=== PATIENT | female | born 1955 | race Caucasian/White ===

== ENCOUNTER 2020-07-18 11:00 | Inpatient (IN) | payer OTHER ==
[2020-07-18 11:13] VITALS: BMI 32.8
[2020-07-18] MEDS ORDERED: SODIUM CHLORIDE 2,517 ML IV ONE (11:25)
[2020-07-18] MEDS ORDERED: metroNIDAZOLE 250 MG TABLET PO ONE (11:39)
[2020-07-18] MEDS ORDERED: VANCOMYCIN 1 GM in D5W (PRE-DOCKED) 1,000 MG/250 ML IVPB ONE (11:39)
[2020-07-18] MEDS ORDERED: CEFTRIAXONE 1,000 MG in DEXTROSE 5%-WATER - 50 ML IVPB ONE (11:39)
[2020-07-18] MEDS ORDERED: ACETAMINOPHEN 1000 MG/100 ML VIAL (NON FORMULARY) IVPB ONE (11:44)
[2020-07-18] MEDS ORDERED: ACETAMINOPHEN INJECTION 100 ML IVPB ONE (12:07)
[2020-07-18] MEDS ORDERED: cefTRIAXone SODIUM 1 GM VIAL ONE (12:07)
[2020-07-18] MEDS ORDERED: metroNIDAZOLE 250 MG TABLET ONE (12:07)
[2020-07-18] MEDS ORDERED: VANCOMYCIN 1,000 MG VIAL (RESTRICTED TO ID ONLY) ONE (12:08)
[2020-07-18 12:26] LABS: ACTIVATED PTT 21.8 SECONDS (25.2-36.5)
[2020-07-18 12:30] LABS: INR 1.27 (0.82-1.09)
[2020-07-18 12:32] LABS: ALBUMIN 4.1 g/dl (3.4-5.0); BILIRUBIN,TOTAL 1.6 mg/dl (0.2-1); CALCIUM 9.4 mg/dl (8.5-10); CREATININE 0.8 mg/dl (0.55-1.3); TOT PROT 7.7 g/dl (6.4-8.2)
[2020-07-18 13:22] LABS: BASO % 0.4 % (0-2.0); EOS % 0.1 % (0-4.5); HEMATOCRIT 41.1 % (32.4-45.2); HEMOGLOBIN 13.7 GM/dL (10.7-15.3); LYMPH % 10.5 % (8-40); MCHC 33.4 g/dl (32.0-36.0); MEAN CELL VOLUME 80.9 fl (80-96); MEAN PLT VOLUME 7.8 fl (7.5-11.1); MONO % 5.3 % (3.8-10.2); NEUT % 83.7 % (42.8-82.8); PLATELET COUNT 339 K/MM3 (134-434); RBC 5.07 M/mm3 (3.60-5.2); WHITE BLOOD COUNT 17.8 K/mm3 (4.0-10.0)
[2020-07-18] MEDS ORDERED: SODIUM CHLORIDE 0.9% 500 ML INFUS.BAG IV ONE (14:26)
[2020-07-18 14:39] LABS: EPITHELIAL CELLS FEW /hpf
[2020-07-18] MEDS ORDERED: MEROPENEM 1 GM in DEXTROSE 5%-WATER 100 ML IVPB SCH (15:00)
[2020-07-18] MEDS ORDERED: MEROPENEM 1 GM in SODIUM CHLORIDE 100 ML IVPB SCH (15:00)
[2020-07-18] MEDS ORDERED: SODIUM CHLORIDE 1,000 ML IV SCH (15:15)
[2020-07-18] MEDS: MEROPENEM 1 GM in DEXTROSE 5%-WATER 100 ML IVPB SCH (17:45)
[2020-07-18 19:39] LABS: CALCIUM 8.8 mg/dl (8.5-10); CREATININE 0.7 mg/dl (0.55-1.3); POTASSIUM 3.9 mmol/L (3.5-5.1)
[2020-07-18] MEDS ORDERED: ATORVASTATIN CA 10 MG TABLET (FP) PO SCH (22:00)
[2020-07-18] MEDS: NEBIVOLOL 5 MG TABLET (FP) PO SCH (22:13)
[2020-07-18] MEDS: INSULIN SLIDING SCALE (NOVOLOG) 1 VIAL SQ SCH (22:14)
[2020-07-19] MEDS: MEROPENEM 1 GM in DEXTROSE 5%-WATER 100 ML IVPB SCH ×3 (01:55→18:59)
[2020-07-19 07:56] LABS: HEMATOCRIT 36.1 % (32.4-45.2); HEMOGLOBIN 11.9 GM/dL (10.7-15.3); MCH 26.7 pg (25.7-33.7); MCHC 32.9 g/dl (32.0-36.0); MEAN CELL VOLUME 81.1 fl (80-96); MEAN PLT VOLUME 7.4 fl (7.5-11.1); PLATELET COUNT 292 K/MM3 (134-434); RBC 4.44 M/mm3 (3.60-5.2); RDW 13.4 % (11.6-15.6); WHITE BLOOD COUNT 11.5 K/mm3 (4.0-10.0)
[2020-07-19 08:09] LABS: POTASSIUM 3.8 mmol/L (3.5-5.1)
[2020-07-19 08:12] LABS: BLOOD UREA NITROGEN 8.7 mg/dL (7-18)
[2020-07-19 08:13] LABS: CALCIUM 8.5 mg/dL (8.5-10.1)
[2020-07-19 08:14] LABS: CREATININE 0.7 mg/dL (0.55-1.3)
[2020-07-19 08:15] LABS: PHOSPHOROUS 2.8 mg/dL (2.5-4.9)
[2020-07-19] MEDS: ENOXAPARIN NA (PORCINE) 40 MG/0.4 ML DISP.SYRIN SQ SCH (09:14)
[2020-07-19] MEDS: INSULIN SLIDING SCALE (NOVOLOG) 1 VIAL SQ SCH ×5 (09:14→22:01)
[2020-07-19] MEDS ORDERED: VANCOMYCIN 1 GM in D5W (PRE-DOCKED) 1,000 MG/250 ML IVPB SCH (10:00)
[2020-07-19] MEDS: LOSARTAN POTASSIUM 50 MG TABLET PO SCH (11:16)
[2020-07-19] MEDS: EZETIMIBE 10 MG TABLET (FP) PO SCH (11:30)
[2020-07-19] MEDS ORDERED: VANCOMYCIN 1 GM in D5W (PRE-DOCKED) 1,000 MG/250 ML IVPB ONE (14:00)
[2020-07-19] MEDS ORDERED: VANCOMYCIN 1 GRAM (PRE-DOCKED) 1,000 MG/250 ML BAG IVPB ONE (14:00)
[2020-07-19] MEDS: ACETAMINOPHEN 325 MG TABLET (FP) PO PRN (14:19)
[2020-07-19] MEDS: NEBIVOLOL 5 MG TABLET (FP) PO SCH (21:14)
[2020-07-19] MEDS ORDERED: ATORVASTATIN CA 20 MG TABLET (FP) PO SCH (22:00)
[2020-07-19] MEDS: SIMVASTATIN 20 MG PO SCH (23:11)
[2020-07-20] MEDS: MEROPENEM 1 GM in DEXTROSE 5%-WATER 100 ML IVPB SCH ×3 (01:34→17:25)
[2020-07-20 08:15] LABS: HEMATOCRIT 35.2 % (32.4-45.2); HEMOGLOBIN 11.8 GM/dL (10.7-15.3); MCH 27.1 pg (25.7-33.7); MCHC 33.4 g/dl (32.0-36.0); MEAN CELL VOLUME 81.2 fl (80-96); MEAN PLT VOLUME 7.1 fl (7.5-11.1); PLATELET COUNT 300 K/MM3 (134-434); RBC 4.33 M/mm3 (3.60-5.2); RDW 13.3 % (11.6-15.6); WHITE BLOOD COUNT 8.6 K/mm3 (4.0-10.0)
[2020-07-20] MEDS: INSULIN SLIDING SCALE (NOVOLOG) 1 VIAL SQ SCH ×4 (08:24→21:56)
[2020-07-20 08:35] LABS: POTASSIUM 4.3 mmol/L (3.5-5.1)
[2020-07-20 08:36] LABS: CALCIUM 8.4 mg/dL (8.5-10.1)
[2020-07-20 08:37] LABS: BLOOD UREA NITROGEN 9.5 mg/dL (7-18); MAGNESIUM 2.1 mg/dL (1.8-2.4)
[2020-07-20 08:40] LABS: CREATININE 0.7 mg/dL (0.55-1.3); PHOSPHOROUS 2.8 mg/dL (2.5-4.9)
[2020-07-20] MEDS: ENOXAPARIN NA (PORCINE) 40 MG/0.4 ML DISP.SYRIN SQ SCH (09:55)
[2020-07-20] MEDS: LOSARTAN POTASSIUM 50 MG TABLET PO SCH (10:30)
[2020-07-20] MEDS: EZETIMIBE 10 MG TABLET (FP) PO SCH (10:30)
[2020-07-20] MEDS ORDERED: HYDROCORTISONE 0.5% TOPICAL CREAM 30 GM TUBE TP PRN (15:35)
[2020-07-20] MEDS: NEBIVOLOL 5 MG TABLET (FP) PO SCH (21:57)
[2020-07-20] MEDS: SIMVASTATIN 20 MG PO SCH (21:59)
[2020-07-21] MEDS: MEROPENEM 1 GM in DEXTROSE 5%-WATER 100 ML IVPB SCH ×3 (01:15→18:09)
[2020-07-21 08:06] LABS: POTASSIUM 4.2 mmol/L (3.5-5.1)
[2020-07-21 08:11] LABS: BASO % 0.5 % (0-2.0); EOS % 0.3 % (0-4.5); HEMOGLOBIN 11.9 GM/dL (10.7-15.3); LYMPH % 36.4 % (8-40); MCH 27.2 pg (25.7-33.7); MCHC 33.1 g/dl (32.0-36.0); MEAN PLT VOLUME 7.2 fl (7.5-11.1); MONO % 4.9 % (3.8-10.2); NEUT % 57.9 % (42.8-82.8); PLATELET COUNT 322 K/MM3 (134-434); RBC 4.39 M/mm3 (3.60-5.2); RDW 13.2 % (11.6-15.6); WHITE BLOOD COUNT 7.7 K/mm3 (4.0-10.0)
[2020-07-21 08:16] LABS: CALCIUM 8.5 mg/dL (8.5-10.1)
[2020-07-21 08:17] LABS: ALBUMIN 2.9 g/dl (3.4-5.0); BLOOD UREA NITROGEN 11.5 mg/dL (7-18); MAGNESIUM 2.1 mg/dL (1.8-2.4)
[2020-07-21 08:20] LABS: CREATININE 0.6 mg/dL (0.55-1.3); PHOSPHOROUS 3.4 mg/dL (2.5-4.9)
[2020-07-21] MEDS: INSULIN SLIDING SCALE (NOVOLOG) 1 VIAL SQ SCH ×4 (08:20→21:47)
[2020-07-21] MEDS: ACETAMINOPHEN 325 MG TABLET (FP) PO PRN (08:21)
[2020-07-21 08:22] LABS: BILIRUBIN,TOTAL 0.9 mg/dL (0.2-1); TOT PROT 6.2 g/dl (6.4-8.2)
[2020-07-21] MEDS: EZETIMIBE 10 MG TABLET (FP) PO SCH (09:51)
[2020-07-21] MEDS: LOSARTAN POTASSIUM 50 MG TABLET PO SCH (09:51)
[2020-07-21] MEDS: ENOXAPARIN NA (PORCINE) 40 MG/0.4 ML DISP.SYRIN SQ SCH (09:55)
[2020-07-21] MEDS: CLINDAMYCIN HCL 150 MG CAPSULE (FP) PO SCH ×2 (13:43→18:02)
[2020-07-21] MEDS: NEBIVOLOL 5 MG TABLET (FP) PO SCH (21:37)
[2020-07-21] MEDS: SIMVASTATIN 20 MG PO SCH ×2 (21:37→21:46)
[2020-07-22] MEDS: MEROPENEM 1 GM in DEXTROSE 5%-WATER 100 ML IVPB SCH ×2 (01:13→09:57)
[2020-07-22] MEDS: ACETAMINOPHEN 325 MG TABLET (FP) PO PRN (01:35)
[2020-07-22] MEDS: INSULIN SLIDING SCALE (NOVOLOG) 1 VIAL SQ SCH ×2 (08:28→11:43)
[2020-07-22] MEDS: ENOXAPARIN NA (PORCINE) 40 MG/0.4 ML DISP.SYRIN SQ SCH (10:20)
[2020-07-22] MEDS: EZETIMIBE 10 MG TABLET (FP) PO SCH (11:00)
[2020-07-22] MEDS: LOSARTAN POTASSIUM 50 MG TABLET PO SCH (11:42)
[2020-07-22 13:17] VITALS: BP 149/91; PULSE 73; TEMP 98.3
== END 2020-07-22 14:05 | disposition home or self-care (01) | DRG 854 ==
LOC: FER 11:00 → J3W 21:07
PROVIDERS: ADMIT Internal Medicine
PROC: 0U9M0ZX Drainage of Vulva, Open Approach, Diagnostic (ICD-10-PCS; principal; 2020-07-18)
DX: A41.89 Other specified sepsis (principal); N76.4 Abscess of vulva; N39.0 Urinary tract infection, site not specified; L02.215 Cutaneous abscess of perineum; I10 Essential (primary) hypertension; E78.5 Hyperlipidemia, unspecified; E11.9 Type 2 diabetes mellitus without complications; Z88.0 Allergy status to penicillin; R00.0 Tachycardia, unspecified; D72.829 Elevated white blood cell count, unspecified; B96.20 Unspecified Escherichia coli [E. coli] as the cause of diseases classified elsewhere; E66.9 Obesity, unspecified; Z68.32 Body mass index [BMI] 32.0-32.9, adult; Z87.11 Personal history of peptic ulcer disease
CPT/HCPCS: 36415; 71045-TC-FY; 72193-TC; 80048; 80053; 81003; 81015; 82962; 83605; 83735; 84100; 84484; 85025; 85027; 85610; 85730; 86140; 87040; 87086; 87186; 93005; 99285-25; C9803; J0131; U0003

== ENCOUNTER 2020-09-23 11:56 | Emergency (ER) | payer OTHER ==
[2020-09-23 12:07] VITALS: BP 170/85; PULSE 81; TEMP 98.5; BMI 32.8
== END 2020-09-23 13:00 | disposition home or self-care (01) ==
LOC: JER 11:56 → JERFT 11:56
DX: G51.0 Bell's palsy (principal)
CPT/HCPCS: 99283-25

== ENCOUNTER 2021-06-27 12:41 | Emergency (ER) | payer OTHER ==
[2021-06-27 12:51] VITALS: BMI 30.5
[2021-06-27 14:29] LABS: BASO % 0.3 % (0-2.0); EOS % 0.1 % (0-4.5); HEMATOCRIT 40.1 % (32.4-45.2); LYMPH % 32.6 % (8-40); MCH 28.7 pg (25.7-33.7); MCHC 34.8 g/dl (32.0-36.0); MEAN CELL VOLUME 82.4 fl (80-96); MEAN PLT VOLUME 6.9 fl (7.5-11.1); MONO % 4.4 % (3.8-10.2); NEUT % 62.6 % (42.8-82.8); PLATELET COUNT 356 10^3/uL (134-434); RBC 4.87 M/mm3 (3.60-5.2); RDW 13.4 % (11.6-15.6); WHITE BLOOD COUNT 10.9 K/mm3 (4.0-10.0)
[2021-06-27 14:52] LABS: CHLORIDE 105 mmol/L (98-107); SODIUM 139 mmol/L (136-145)
[2021-06-27 14:54] LABS: CALCIUM 10.4 mg/dL (8.5-10.1)
[2021-06-27 14:55] LABS: ALBUMIN 4.4 g/dl (3.4-5.0); ANION GAP 6 MMOL/L (8-16); BLOOD UREA NITROGEN 18.1 mg/dL (7-18); CO2 29 mmol/L (21-32); GLUCOSE,RANDOM 112 mg/dL (74-106)
[2021-06-27 14:58] LABS: CREATININE 0.8 mg/dL (0.55-1.3); SGOT/AST 13 U/L (15-37); SGPT/ALT 20 U/L (13-61)
[2021-06-27 14:59] LABS: TOT PROT 7.9 g/dl (6.4-8.2)
[2021-06-27 15:01] LABS: ALK PHOS 42 U/L (45-117)
[2021-06-27 15:53] VITALS: BP 138/89; PULSE 76; TEMP 98.1
== END 2021-06-27 15:50 | disposition home or self-care (01) ==
LOC: JER 12:41
DX: I10 Essential (primary) hypertension (principal)
CPT/HCPCS: 36415; 80053; 84484; 85025; 93005; 93010; 99284-25

== ENCOUNTER 2021-07-14 09:45 | Emergency (ER) | payer OTHER ==
[2021-07-14 10:01] VITALS: BP 143/93; PULSE 108; TEMP 99.8; BMI 29.2
[2021-07-14 12:38] LABS: PH,URINE 5.5 (5.0-8.0); URINE APPEARANCE CLEAR; URINE BILIRUBIN NEGATIVE (NEGATIVE); URINE COLOR YELLOW; URINE GLUCOSE (UA) NEGATIVE (NEGATIVE); URINE KETONE NEGATIVE (NEGATIVE); URINE LEUK ESTERASE NEGATIVE (NEGATIVE); URINE NITRITE NEGATIVE (NEGATIVE); URINE PROTEIN NEGATIVE (NEGATIVE); URINE UROBILINOGEN 0.2 mg/dL (0.2-1.0)
== END 2021-07-14 14:07 | disposition home or self-care (01) ==
LOC: JER 09:45
DX: U07.1 COVID-19 (principal); R05.1 Acute cough
CPT/HCPCS: 71046-TC-FY; 81003; 87086; 99284-25; C9803; U0003; U0005

== ENCOUNTER 2021-07-15 10:36 | Emergency (ER) | payer OTHER ==
[2021-07-15 11:07] VITALS: BMI 28.3
[2021-07-15] MEDS ORDERED: BAMLANIVIMAB 700 MG, ETESEVIMAB 1,400 MG in SODIUM CHLORIDE 100 ML IVPB ONE (11:33)
[2021-07-15 12:23] LABS: BASO % 0.4 % (0-2.0); EOS % 0.2 % (0-4.5); HEMATOCRIT 40.5 % (32.4-45.2); HEMOGLOBIN 13.8 GM/dL (10.7-15.3); LYMPH % 21.7 % (8-40); MCHC 34.2 g/dl (32.0-36.0); MEAN CELL VOLUME 81.9 fl (80-96); MEAN PLT VOLUME 6.9 fl (7.5-11.1); MONO % 10.7 % (3.8-10.2); PLATELET COUNT 252 10^3/uL (134-434); RBC 4.94 M/mm3 (3.60-5.2); RDW 13.6 % (11.6-15.6); WHITE BLOOD COUNT 7.3 K/mm3 (4.0-10.0)
[2021-07-15 12:57] LABS: CALCIUM 9.8 mg/dL (8.5-10.1)
[2021-07-15 13:01] LABS: CREATININE 0.8 mg/dL (0.55-1.3)
[2021-07-15 13:02] LABS: BILIRUBIN,TOTAL 1.1 mg/dL (0.2-1); TOT PROT 8.2 g/dl (6.4-8.2)
[2021-07-15 15:13] VITALS: BP 152/91; PULSE 102; TEMP 100
== END 2021-07-15 15:14 | disposition home or self-care (01) ==
LOC: JCOVINFU 10:36 → JER 10:36 → JCOVINFU 15:14
DX: U07.1 COVID-19 (principal); J06.9 Acute upper respiratory infection, unspecified; R05.1 Acute cough; R09.81 Nasal congestion
CPT/HCPCS: 36415; 80053; 85025; 99284-25; M0239; Q0239; Q0245

== ENCOUNTER 2021-12-04 04:15 | Day surgery (SDC) | payer OTHER ==
[2021-12-02 14:21] VITALS: BMI 28.3
[2021-12-04] MEDS ORDERED: BUPIVACAINE HCL/PF 0.5% (5MG/ML) 10 ML VIAL IJ ONE ×3 (09:23→09:35)
[2021-12-04] MEDS ORDERED: LIDOCAINE HCL 1%, 10 MG/ML (20ML VIAL) NR ONE ×3 (09:23→09:35)
[2021-12-04 11:04] VITALS: BP 154/90; PULSE 75; TEMP 97.5
== END 2021-12-04 11:20 | disposition home or self-care (01) ==
LOC: JASU-SURG 04:15
PROVIDERS: ATTEND Surgery
PROC: 0JB73ZZ Excision of Back Subcutaneous Tissue and Fascia, Percutaneous Approach (ICD-10-PCS; principal; 2021-12-04 10:30)
DX: L72.3 Sebaceous cyst (principal); L03.312 Cellulitis of back [any part except buttock and flank]; I10 Essential (primary) hypertension; E11.9 Type 2 diabetes mellitus without complications; Z79.84 Long term (current) use of oral hypoglycemic drugs; E78.5 Hyperlipidemia, unspecified
CPT/HCPCS: 82962; 88304-TC

== ENCOUNTER 2023-12-26 18:02 | Emergency (ER) | payer OTHER ==
[2023-12-26 18:38] VITALS: TEMP 97.8; BMI 26.9
[2023-12-26 18:51] LABS: HEMATOCRIT 38.9 % (32.4-45.2); HEMOGLOBIN 13.2 G/dL (10.7-15.3); MCHC 33.9 g/dl (32.0-36.0); MEAN CELL VOLUME 82.6 fl (80-96); MEAN PLT VOLUME 7.1 fl (7.5-11.1); PLATELET COUNT 253.1 10^3/uL (134-434); RBC 4.71 10^6/uL (3.60-5.2); RDW 14.3 % (11.6-15.6); WHITE BLOOD COUNT 8.5 10^3/uL (4.0-10.8)
[2023-12-26] MEDS: KETOROLAC TROMETHAMINE 30 MG/1 ML VIAL IM ONE (19:00)
[2023-12-26 19:22] LABS: ALBUMIN 4.8 g/dl (3.4-5.0); BILIRUBIN,TOTAL 1.3 mg/dl (0.2-1); CALCIUM 10.2 mg/dl (8.5-10.1); CREATININE 0.6 mg/dl (0.6-1.3); MAGNESIUM 2.3 mg/dL (1.8-2.4); TOT PROT 7.3 g/dl (6.4-8.2)
[2023-12-26 19:33] VITALS: BP 159/86; PULSE 81; RESP 15
[2023-12-26] MEDS: CARVEDILOL 12.5 MG TABLET (FP) PO ONE (20:25)
[2023-12-26] MEDS ORDERED: ALPRAZolam 0.25 MG TABLET ONE (20:25)
[2023-12-26] MEDS: ALPRAZolam 1 MG TABLET PO PRN (20:28)
== END 2023-12-26 20:38 | disposition home or self-care (01) ==
LOC: FER 18:02
DX: R00.2 Palpitations (principal)
CPT/HCPCS: 36415; 71045-TC-FY; 80053; 83735; 84439; 84443; 84484; 85025; 93005; 99285-25